=== PATIENT | female | born 1990 | race Asian ===

== ENCOUNTER 2022-12-10 13:09 | Emergency (ER) | payer OTHER ==
[~2022-12-10] VITALS: Ht 160 cm; Wt 74.8 kg
[2022-12-10 14:45] VITALS: BP 122/69; TEMP 98.1
== END 2022-12-10 14:45 | disposition home or self-care (01) ==
LOC: ED 13:09
DX: Z53.29 Procedure and treatment not carried out because of patient's decision for other reasons (principal)
CPT/HCPCS: 80307; 81000; 81025; 87077; 87086; 87088; 87186; 93005; 99282